=== PATIENT | male | born 1995 | race Caucasian/White ===

== ENCOUNTER 2021-04-02 08:15 | Emergency (ER) | payer SELFPAY ==
[2021-04-02 08:55] VITALS: BP 144/79; PULSE 86; TEMP 37; O2SAT 99
--- NOTE | 2021-04-02 09:17 | ED.GENADUL_ITS ---
Discharge Plan Disposition Patient Disposition: HOME Condition: Improving Discharge Details Chief Complaint: Orthopedic Clinical Impression: Subungual hematoma, Crushing injury of thumb, left Primary Care Provider: None,None ED Provider: Maldonado Haro Home Meds and New Rx's Prescriptions: No Action No Known Home Meds RF: 0 Discharge Instructions Instructions: Hematoma (ED) Additional Instructions: Subungual hematoma was evacuated. X-ray was unremarkable as read by our radiologist. Wear splint as needed, advance activity as tolerated. Rest, elevate, cool compresses every 2 hours for 20 minutes. [id number] Tylenol and/or Motrin as directed for discomfort. Please watch for new or worsening symptoms and return to the ER for any concerns. Medical Decision Making 25-year-old gentleman presents with a left thumb injury that he sustained yesterday after dropping a heavy object. Neuro, vascular, tendon intact. There is a subungual hematoma which I evacuated, patient did have moderate relief. W ill obtain x-ray to rule out any bony involvement. X-ray read by radiology as no acute fracture and/or dislocation. Discussed x-ray findings with patient. Patient states that he feels that the pressure in his thumb is much improved after the chemical hematoma drainage but still feels some pain. We discussed disposition. Patient would like a splint applied. Splint applied. Discussed conservative management of resting, elevating, [id number] Tylenol and/or Motrin. Standard discharge p recautions provided. This documentation was generated using [employer] dictation system, please disregard any oddities of phrase or misspellings. Medical Records Medical records reviewed: Yes I reviewed the patient's medical records. Imaging Data Radiologic Study: Attestation: I personally reviewed and interpreted this imaging study as follows: Imaging: X-Ray Radiologist's impression: EXAM XR THUMB LT CLINICAL HISTORY crush injury TECHNIQUE [] COMPARISON [CR RIGHT HAND COMPLETE from 01/29/2017] FINDINGS [Four views were obtained. There is no evidence of a fracture or dislocation.] HPI General Mode of arrival: ambulatory . Date/Time Provider Initiated Documentation: 04/02/21 09:01 . Limitations to Documentation: no limitations . Information obtained by: patient . HPI Narrative: This is a 25-year-old male, denies significant past medical history, [id number], presenting to the ER today for left thumb injury that occurred last night. Patient states that he is in the process of moving, was carrying a heavy object, slipped, and the object crushed his left thumb. Reports the pain is moderate worse with palpation or movement. Denies any other injury. Denies numbness, tingling, weakness. Patient did not take any medications prior to arrival. Related Data Home Medications Medication Instructions Recorded Confirmed Unknown [No Known Home Meds] 01/29/17 04/02/21 Allergies Allergy/AdvReac Type Severity Reaction Status Date / Time No Known Allergies Allergy Unverified 04/02/21 09:01 General Stated Complaint: Orthopedic GERMAINE: 4 Review of Systems Constitutional Constitutional: Denies weakness Musculoskeletal Musculoskeletal: Denies deformity, Denies arthralgias, Denies numbness, Reports stiffness and Denies tingling Integumentary/Breasts Skin/Breast: Denies erythema Neurologic Neurologic: Denies numbness, Denies tingling and Denies weakness [facility] Social History Smoking/Tobacco Use Status: Current every day Tobacco Type: cigarettes Smoking risk assessment performed?: Yes Alcohol Intake: current Alcohol Intake frequency: a few times a week Alcohol type: beer Drug use: Daily Substance use type: marijuana Do you feel safe at home: Yes Do you feel safe in your relationship?: Yes Exam Const General: cooperative, healthy appearing, comfortable and no acute distress Orientation: alert and awake [facility] Head: normal to inspection, normocephalic and atraumatic Eyes Conjunctivae: conjunctivae normal Neck Neck: normal visual inspection, trachea midline and supple Resp Effort & Inspection: normal respiratory effort and able to speak in complete sentences Cardio Rate: regular rate Rhythm: regular rhythm Skin General skin exam: no rashes or lesions noted Neuro General: patient alert, patient awake, moves all extremities and no focal motor deficits Cognition: normal cognition Speech: speech normal Gait: normal gait Motor: muscle tone normal throughout Sensory Exam: no sensory deficits noted Extrem General: capillary refill normal Hand/finger images: 1. Diffuse, mild swelling and tenderness. Skin is intact. Full range of motion. Neuro, vascular, tendon intact. There is a small subungual hematoma at the proximal aspect of the nailbed. Psych Appearance: grossly normal Mental Status: mental status grossly normal Course Vital Signs Vital signs: Vital Signs Temperature 37.0 C 11/02/21 08:55 Pulse 86 04/02/21 08:55 Blood Pressure 144/79 H 04/02/21 08:55 Pulse Oximetry 99 04/02/21 08:55 Temperature 37.0 C 04/02/21 08:55 Temperature Source Temporal Artery Scan 04/02/21 08:55 Pulse 86 04/02/21 08:55 Respiratory Effort Non-Labored 04/02/21 08:58 Blood Pressure 144/79 H 04/02/21 08:55 Blood Pressure Position Sitting 04/02/21 08:55 Pulse Oximetry 99 04/02/21 08:55 Oxygen Delivery Method Room Air 04/02/21 08:55 Oxygen Flow Rate 0 04/02/21 08:55 Pain Level 7 04/02/21 08:58 Procedures Nail Trephination Location (finger): left and thumb Method of drainage: nail cautery Procedure successful: Yes Patient tolerated procedure: well Complications: other (none) PAWSS Have you Been Recently Intoxicated or Drunk Within the Last 30 days?: No Have you Ever Experienced Previous Episodes of Alcohol Withdrawal?: No Have you ever Experienced Withdrawal Seizures?: No Have you ever Experienced Delirium Tremens(DT)s?: No Have you ever undergone Alcohol Rehabilitation Treatment (i.e, inpt ot outpatient treatment programs)?: No Have you ever Experienced Blackouts?: No Have you ever Combined Alcohol with other Downers within the last 90 days?: No Have you ever Combined Alcohol with any other Substance of Abuse during the last 90 days?: No Positive Blood Alcohol level on Presentation? [PCS.BAL]: No Evidence of Increased Autonomic Activity (i.e. HR>120, tremor, sweating, agitation, nausea)?: No Result: 0
--- NOTE | 2021-04-02 09:24 | DI.RAD_ITS ---
Exam(s) XR THUMB LT EXAM: XR THUMB LT CLINICAL HISTORY: crush injury TECHNIQUE: COMPARISON: CR RIGHT HAND COMPLETE from 01/29/2017 FINDINGS: Four views were obtained. There is no evidence of a fracture or dislocation. IMPRESSION: RADIATION DOSE DELIVERED: Total DLP
== END 2021-04-02 09:50 | disposition home or self-care (01) ==
PROVIDERS: Emergency Provider Physician Assistant
DX: S67.02XA Crushing injury of left thumb, initial encounter (principal); S60.112A Contusion of left thumb with damage to nail, initial encounter; W23.0XXA Caught, crushed, jammed, or pinched between moving objects, initial encounter
CPT/HCPCS: 11740; 29130; 99283; 73140